=== PATIENT | female | born 1980 | race Caucasian/White ===

== ENCOUNTER → 2020-04-27 | Day surgery (SDC) | payer BC ==
[~2020-04-27] MED LIST: BLISOVI 24 FE1 EACH; BUPIVACAINE 0.25% 30ML SDV ONE; BUPIVACAINE HCL 0.5% 10ML MPF VIAL INJ ONE; CEFAZOLIN SOD 1 GM/NS 50ML 50 ML IV ONE; DEXAMETHASONE SOD PHOS INJ 4 MG/ML VIAL ONE; FENTANYL CITRATE/PF 100MCG/2 ML INJ ONE; KETAMINE HCL INJ 50 MG/ML 10 ML VIAL ONE; KETOROLAC TROMETHAMINE 30 MG/ML VIAL ONE; LIDOCAINE HCL 2% LOCAL INJ 5 ML SDV VIAL INJ ONE; MIDAZOLAM HCL 2 MG/2 ML VIAL ONE; ONDANSETRON HCL INJ 2MG/ML 2ML 2 MG/ML VIAL ONE; PROPOFOL IV EMULSION 10 MG/ML 20 ML VIAL ONE; SEVOFLURANE INHAL SOLN 250 ML PEN BTL ONE
[2020-04-27 08:20] VITALS: BP 139/85
--- NOTE | 2020-04-27 10:07 | Operative Report ---
DATE OF PROCEDURE: 04/27/2020 SURGEON: Jaclyn Orlando DPM PREOPERATIVE DIAGNOSIS: Right foot plantar fasciitis with heel spur. POSTOPERATIVE DIAGNOSIS: Right foot plantar fasciitis with heel spur. PLANNED PROCEDURE: Right plantar fasciotomy with excision of heel spur. ANESTHESIA: General with a postoperative block consisting of 10 mL of 0.5% Marcaine plain mixed with 1 mL of dexamethasone phosphate. HEMOSTASIS: Pneumatic thigh tourniquet set at 350 mmHg for a total time approximately 20 minutes. MATERIALS: 3-0 Vicryl, 4-0 nylon, and one TLS drain. ESTIMATED BLOOD LOSS: Less than 10 mL. PATHOLOGY: None. PROCEDURE NOTE: The patient was seen in the preoperative waiting room, where the correct procedure and site were identified. The patient was brought into the operating room and placed on the operating table in supine position. General anesthesia was initiated. At this time, a well-padded pneumatic tourniquet was placed about the patient's right thigh. The right foot, ankle, and leg was then scrubbed, prepped, and draped in the usual aseptic manner. The right leg, ankle, and leg was exsanguinated with an Esmarch bandage. The pneumatic thigh tourniquet was inflated to 350 mmHg for a total time of approximately 20 minutes. Attention was directed to the plantar medial aspect of the patient's right heel, where a 4 cm linear incision was made. The incision was carried through subcutaneous tissue them from deep or underlying structures. All vital and neurovascular structures were identified and retracted medially and laterally. All bleeders were cauterized or ligated as deemed necessary. The incision was carried down to the level of the medial calcaneal heel spur, where utilizing an osteotome and mallet, a heel spur was resected and passed off the back table. The plantar fascia was cut approximately one-third to one-half along the plantar aspect of the foot. Next, utilizing a rongeur and a bone spur, the calcaneal heel spur was rounded to anatomic alignment and confirmed via intraoperative fluoroscopy. The wound was then copiously irrigated with sterile saline. Capsule and deep tissue were reapproximated with 3-0 Vicryl, subcutaneous tissue with 3-0 Vicryl, and the skin was closed using a running interlocking stitch of 3-0 nylon. The patient tolerated the procedure and anesthesia well. The patient was transferred to postoperative recovery room with vital signs stable and vascular status intact. The patient was monitored there for short period of time before being sent home with the following written and oral instructions: 1. Keep the dressing clean, dry, and intact. 2. The patient is to remain nonweightbearing to the right lower extremity to avoid any ambulation until being seen in the office. 3. The patient was given the office number and instructed her to contact us if any problems arise. MADHURI Mcfarlane/MODL /[id number]
== END | disposition home or self-care (01) ==
LOC: OR 05:26
PROVIDERS: ATTEND Podiatrist Foot & Ankle Surgery
DX: M77.31 Calcaneal spur, right foot (principal); M72.2 Plantar fascial fibromatosis; Z01.812 Encounter for preprocedural laboratory examination; Z20.828 Contact with and (suspected) exposure to other viral communicable diseases
CPT/HCPCS: 28119; 81025; J0690; J1100; J1885; J2001; J2250; J2405; J2704; J3010; U0002